=== PATIENT | female | born 1950 | race Caucasian/White ===

== ENCOUNTER 2016-03-21 17:51 | Emergency (ER) | payer OTHER ==
[~2016-03-21] VITALS: Ht 162.6 cm; Wt 42.2 kg
[~2016-03-21 17:51] MED LIST: ALPRAZOLAM0.5 MG PO; ALPRAZOLAM1 MG; ALPRAZOLAM1 MG PO; ARTANE2 MG PO; ARTANE5 MG PO; ASPIR 8181 M1 PO; ASPIRIN EC325 MG PO; BENTYL20 MG PO; CELEXA40 MG; CELEXA40 MG PO; CIPRO500 MG PO; CITALOPRAM HBR40 MG PO; CLONAZEPAM2 MG PO; DAILY VITE1 EAC1 PO; FEOSOL325 MG PO; FERROUS SULFAT325 MG PO; FLAGYL500 MG PO; FOLIC ACID1 MG PO; GABAPENTIN100 MG PO; HYDROCODON-ACE1 EACH PO; HYDROCODONE-AP1 EAC8 PO; KLONOPIN2 MG PO; LASIX20 MG PO; LIDODERM 5% P1 PATCH TD; METRONIDAZOLE500 MG PO; MOTRIN600 MG PO; MVI; NAVANE5 MG PO; NEURONTIN100 MG PO; OXYCODONE-ACET1 EACH PO; PERCOCET 5/31 TABLET PO; THIOTHIXENE5 MG PO; TOPROL XL6.25 MG PO; TRAMADOL; ULTRACET1 TABLET PO; ULTRAM50 MG PO; VITAMIN D400 UNI1; VOLTAREN50 MG PO; XANAX1 MG PO
[2016-03-21 19:02] LABS: EOSINOPHIL (%) 1.9 % (0-5); EOSINOPHIL COUNT 0.2 K/uL (0-0.3); HEMATOCRIT 35.4 % (36.0-46.0); IMMATURE GRANULOCYTE (%) 0.1 % (0.0-0.7); IMMATURE GRANULOCYTE COUNT 0.1 K/uL; MCH 32.2 PG (29.0-34.0); MCHC 32.5 G/DL (30.0-36.0); MCV 99.2 FL (83-99); MEAN PLAT.VOLUME 10.2 uM^3 (9.5-12.4); MONOCYTE (%) 8.2 % (3-12); MONOCYTE COUNT 0.7 K/uL (0-0.8); NEUTROPHIL (%) 76.8 % (45-76); NEUTROPHIL COUNT 6.4 K/uL (1.8-6.4); PLATELET COUNT 287 K/uL (156-360); RBC DIS.WIDTH-CV 12.5 % (11.8-14.6); RBC DIS.WIDTH-SD 43.5 % (39-53); RED BLOOD COUNT 3.57 M/uL (3.80-5.20); WHITE BLOOD COUNT 8.3 K/uL (4.1-10.2)
[2016-03-21 19:17] LABS: CHLORIDE 101 mEq/L (99-109); POTASSIUM 3.1 mEq/L (3.7-5.4); SODIUM 139 mEq/L (136-147)
[2016-03-21 19:19] LABS: GLUCOSE 100 mg/dL (70-99)
[2016-03-21 19:20] LABS: ANION GAP 11 MEQ/L (2-14)
[2016-03-21 19:23] LABS: GFR ESTIMATE (CALCULATED) 32 mL/min/
[2016-03-21 19:24] LABS: UREA NITROGEN (BUN) 22 mg/dL (9-23)
[2016-03-21 23:04] LABS: TOTAL BILIRUBIN 0.2 mg/dL (0.0-1.0)
[2016-03-21 23:05] LABS: ALKALINE PHOSPHATASE 196 IU/L (3-129)
[2016-03-21 23:08] LABS: DIRECT BILIRUBIN 0.2 mg/dL (0.0-0.3)
[2016-03-22 00:11] VITALS: BP 123/66
[2016-03-22 00:59] LABS: ADD MEDTOX COMMENT Y; AMPHETAMINE NEGATIVE (500 ng/mL); BARBITURATES NEGATIVE (200 ng/mL); BENZODIAZEPINES PRESUMPTIVE POSITIVE (150 ng/mL); COCAINE NEGATIVE (150 ng/mL); INTERNAL CONTROLS VALID? YES; METHADONE NEGATIVE (200 ng/mL); METHAMPHETAMINE NEGATIVE (500 ng/mL); OPIATES (MORPHINE) NEGATIVE (100 ng/mL); OXYCODONE PRESUMPTIVE POSITIVE (100 ng/mL); PHENCYCLIDINE NEGATIVE (25 ng/mL); PROPOXYPHENE NEGATIVE (300 ng/mL); THC CANNABINOIDS NEGATIVE (50 ng/mL); TRICYCLIC ANTIDEPRESSANTS PRESUMPTIVE POSITIVE (300 ng/mL)
[2016-03-22 01:18] LABS: ADD MIUA? YES; BILIRUBIN NEGATIVE; BLOOD NEGATIVE; COLOR YELLOW ((YELLOW)); GLUCOSE (STRIP) NEGATIVE; KETONES NEGATIVE; LEUKOCYTES NEGATIVE; NITRITE NEGATIVE; PROTEIN (STRIP) NEGATIVE; SPECIFIC GRAVITY 1.006 (1.000-1.030); UROBILINOGEN 0.2 MG/DL (0.2-1.0)
[2016-03-22 01:23] LABS: BACTERIA 2+ /HPF; EPITHELIAL CELLS RARE /HPF; MUCUS 3+ /LPF; RED BLOOD CELLS 0-5 /HPF (0-5); WHITE BLOOD CELLS 0-5 /HPF (0-5)
[2016-03-22 01:24] LABS: UCUL ADDED? YES
[2016-03-22 02:24] LABS: BENZODIAZEPINES, URINE SCREEN POSITIVE (200 ng/mL)
== END 2016-03-22 00:23 | disposition home or self-care (01) ==
LOC: EME 17:51
PROVIDERS: Emergency Medicine; Nurse Practitioner Family
DX: T42.4X5A Adverse effect of benzodiazepines, initial encounter (principal); E87.6 Hypokalemia; Z91.19 Patient's noncompliance with other medical treatment and regimen; F17.200 Nicotine dependence, unspecified, uncomplicated; Z71.6 Tobacco abuse counseling
CPT/HCPCS: 71010; 80048; 80076; 81003; 83605; 84999; 85025; 87077; 87086; 87186; 99281; 99284; J7030

== ENCOUNTER 2016-03-27 14:46 | Emergency (ER) | payer OTHER ==
[~2016-03-27] VITALS: Ht 162.6 cm; Wt 42.7 kg
[2016-03-27 15:25] LABS: HEMATOCRIT 37.3 % (36.0-46.0); MCH 32.6 PG (29.0-34.0); MCHC 32.4 G/DL (30.0-36.0); MCV 100.5 FL (83-99); MEAN PLAT.VOLUME 9.7 uM^3 (9.5-12.4); PLATELET COUNT 258 K/uL (156-360); RBC DIS.WIDTH-CV 12.4 % (11.8-14.6); RBC DIS.WIDTH-SD 44.1 % (39-53); RED BLOOD COUNT 3.71 M/uL (3.80-5.20); WHITE BLOOD COUNT 8.9 K/uL (4.1-10.2)
[2016-03-27 15:25] LABS: ADD MIUA? YES; BILIRUBIN NEGATIVE; BLOOD NEGATIVE; COLOR YELLOW ((YELLOW)); GLUCOSE (STRIP) NEGATIVE; KETONES NEGATIVE; LEUKOCYTES MODERATE; NITRITE NEGATIVE; PROTEIN (STRIP) NEGATIVE; SPECIFIC GRAVITY 1.015 (1.000-1.030); UROBILINOGEN 0.2 MG/DL (0.2-1.0)
[2016-03-27 15:34] LABS: CHLORIDE 106 mEq/L (99-109); SODIUM 139 mEq/L (136-147)
[2016-03-27 15:36] LABS: GLUCOSE 102 mg/dL (70-99); POTASSIUM 4.2 mEq/L (3.7-5.4)
[2016-03-27 15:38] LABS: ANION GAP 8 MEQ/L (2-14)
[2016-03-27 15:40] LABS: BACTERIA 3+ /HPF; EPITHELIAL CELLS 1+ /HPF; MUCUS NONE SEEN /LPF; RED BLOOD CELLS NONE SEEN /HPF (0-5); UCUL ADDED? YES; WHITE BLOOD CELLS 40-50 /HPF (0-5)
[2016-03-27 15:40] LABS: ALKALINE PHOSPHATASE 156 IU/L (3-129)
[2016-03-27 15:41] LABS: UREA NITROGEN (BUN) 13 mg/dL (9-23)
[2016-03-27 15:44] LABS: GFR ESTIMATE (CALCULATED) > 59 mL/min/; TOTAL BILIRUBIN 0.3 mg/dL (0.0-1.0)
[2016-03-27] MEDS ORDERED: LEVAQUIN750 MG PO ×2 (17:18→17:35)
[2016-03-27 17:51] VITALS: BP 140/65
== END 2016-03-27 18:00 | disposition home or self-care (01) ==
LOC: EME 14:46
DX: N39.0 Urinary tract infection, site not specified (principal); F17.200 Nicotine dependence, unspecified, uncomplicated
CPT/HCPCS: 80053; 81003; 85027; 87077; 87086; 87186; 99281; 99284

== ENCOUNTER 2017-10-11 09:45 | Emergency (ER) | payer OTHER ==
[~2017-10-11] VITALS: Ht 162.6 cm; Wt 35.3 kg
[~2017-10-11 09:45] MED LIST changes: +LEVAQUIN750 MG PO
[2017-10-11 10:43] LABS: BASOPHIL (%) 0.3 % (0-1); EOSINOPHIL (%) 0.2 % (0-5); HEMATOCRIT 40.1 % (36.0-46.0); HEMOGLOBIN 13.5 G/DL (11.9-15.5); IMMATURE GRANULOCYTE (%) 0.2 % (0.0-0.7); LYMPHOCYTE (%) 8.3 % (15-42); LYMPHOCYTE COUNT 0.5 K/uL (1.0-2.8); MCH 33.7 PG (29.0-34.0); MCHC 33.7 G/DL (30.0-36.0); MONOCYTE (%) 4.8 % (3-12); MONOCYTE COUNT 0.3 K/uL (0-0.8); NEUTROPHIL (%) 86.2 % (45-76); NEUTROPHIL COUNT 5.2 K/uL (1.8-6.4); PLATELET COUNT 192 K/uL (156-360); RBC DIS.WIDTH-CV 12.2 % (11.8-14.6); RBC DIS.WIDTH-SD 45.3 % (39-53); RED BLOOD COUNT 4.01 M/uL (3.80-5.20); WHITE BLOOD COUNT 6.1 K/uL (4.1-10.2)
[2017-10-11 10:49] LABS: INTER. NORMALIZED RATIO 0.9
[2017-10-11 10:51] LABS: PTT 28.4 SEC (25-37)
[2017-10-11 10:56] LABS: ALBUMIN 3.4 g/dL (3.2-4.8); CHLORIDE 100 mEq/L (99-109); POTASSIUM 4.7 mEq/L (3.7-5.4); SODIUM 134 mEq/L (136-147)
[2017-10-11 10:57] LABS: MAGNESIUM 2.2 mg/dL (1.3-2.7)
[2017-10-11 10:59] LABS: GLUCOSE 122 mg/dL (70-99); TOTAL PROTEIN 6.4 g/dL (6.4-8.3)
[2017-10-11 11:01] LABS: TOTAL BILIRUBIN 0.5 mg/dL (0.0-1.0)
[2017-10-11 11:02] LABS: ALKALINE PHOSPHATASE 77 IU/L (3-129)
[2017-10-11 11:03] LABS: GFR ESTIMATE (CALCULATED) 59 mL/min/
[2017-10-11 11:04] LABS: AST (GOT) 16 IU/L (2-34); DIRECT BILIRUBIN 0.2 mg/dL (0.0-0.3); UREA NITROGEN (BUN) 11 mg/dL (9-23)
[2017-10-11 11:06] LABS: ALT (GPT) 12 IU/L (3-49); LIPASE 4 U/L (1.0-51.0)
[2017-10-11 16:57] VITALS: BP 143/125
== END 2017-10-11 17:00 | disposition home or self-care (01) ==
LOC: EME 09:45
PROVIDERS: Emergency Medicine
DX: K80.70 Calculus of gallbladder and bile duct without cholecystitis without obstruction (principal); R63.4 Abnormal weight loss; I10 Essential (primary) hypertension; Z79.82 Long term (current) use of aspirin; F17.200 Nicotine dependence, unspecified, uncomplicated
CPT/HCPCS: 74181; 80048; 80076; 83690; 83735; 85025; 85610; 85730; 86850; 86900; 86901; 99281; 99284